=== PATIENT | female | born 1975 | race Caucasian/White ===

== ENCOUNTER 2019-09-23 18:24 | Emergency (ER) | payer OTHER, SELFPAY ==
--- NOTE | ~2019-09-23 | CT_ITS ---
EXAMINATION: CT abdomen pelvis w con INDICATION: Abdominal pain and vomiting TECHNIQUE: Computed tomographic images of the abdomen and pelvis were obtained after the administrati on of 100 cc of Omnipaque 350 intravenous contrast. The dose-length product (DLP) was 705.37 mGy-cm. Automated exposure control and iterative reconstruction technique were employed. COMPARISON: None available FINDINGS: The lung bases are clear. The heart size is normal. Bilateral breast implants are noted. Th e liver is diffusely low in attenuation when compared with the spleen, consistent with hepatic steato sis. The gallbladder is surgically absent. There is mild enlargement of the common bile duct and cent ral intrahepatic ducts which is likely due to post cholecystectomy state. The spleen, pancreas, adren al glands, and kidneys are normal. There is a 1.5 x 0.8 cm soft tissue density situated adjacent to t he spleen, gastric fundus, and left adrenal gland which matches the spleen in attenuation and likely represents a splenule. No pathologically enlarged abdominal or pelvic lymph nodes are identified. The re is no free intraperitoneal gas or evidence of bowel obstruction. IMPRESSION: 1. No CT correlate for the patient's symptoms. 2. Diffuse hepatic steatosis. Reviewed, dictated and finalized at location A.
[2019-09-23 18:26] VITALS: BP 131/88; PULSE 75; RESP 18; TEMP 36.6; O2SAT 97
[2019-09-23 18:44] LABS: Basophils Absolute Auto 0.1 K/mm3 (0.0-0.1); Basophils Percent Auto 0.8 % (0.2-1.2); Eosinophils Absolute Auto 0.1 K/mm3 (0-0.3); Eosinophils Percent Auto 1.4 % (0-4.4); Hemoglobin 14.1 g/dL (12.0-15.0); Immature Granulocyte Absolute 0.02 K/mm3 (0.00-0.031); Immature Granulocyte Percent A 0.2 % (0-0.5); Lymphocytes Absolute Auto 3.85 K/mm3 (0.9-3.2); Lymphocytes Percent Auto 41.5 % (18.3-44.2); Mean Corpuscular HGB Conc 33.6 g/dl (32-36); Mean Corpuscular Hemoglobin 31.5 pg (26-34); Monocytes Absolute Auto 0.7 K/mm3 (0.1-0.6); Monocytes Percent Auto 7.6 % (2.6-8.5); Neutrophils Absolute Auto 4.5 K/mm3 (1.3-6.7); Neutrophils Percent Auto 48.5 % (45.5-73.1); Platelet Count Result 220 k/mm3 (150-375); Red Blood Count 4.47 M/mm3 (4.2-5.4); Red Cell Distribution Width 13.9 % (11.5-14.5); White Blood Count 9.3 K/mm3 (4.5-10.0)
[2019-09-23 18:56] LABS: Alanine Aminotransferase 17 U/L (4-35); Albumin Level 4.3 g/dL (3.5-5.1); Alkaline Phosphatase 87 U/L (38-126); Anion Gap 10.6 mmol/L (7-16); Aspartate Amino Transferase 24 U/L (14-36); Bilirubin,Total 0.3 mg/dL (0.2-1.3); Blood Urea Nitrogen 12 mg/dL (7-17); Calcium 9.2 mg/dL (8.4-10.2); Carbon Dioxide 27 mmol/L (22-30); Chloride 101 mmol/L (98-107); Estimated CRCL calculation 90 ml/min; Estimated Glomerular Filt Rate > 60; Glucose 252 mg/dL (65-105); Lipase 87 U/L (23-300); Potassium 3.6 mmol/L (3.4-5.0); Sodium 135 mmol/L (137-145)
--- NOTE | 2019-09-23 18:57 | ED.ABDPAIN ---
HPI - Abdominal Pain General Chief Complaint: Abdominal Pain Stated Complaint: right flank pain Time Seen by Provider: 09/23/19 18:55 Source: patient Mode of arrival: ambulatory Limitations: no limitations History of Present Illness HPI narrative: Patient is a 44-year-old female with a history of type 1 diabetes who presents for evaluation of vomiting and abdominal pain. Patient reports a one-week history of intermittent cramping abdominal pain, located throughout her abdomen but mostly on the right side and in the right flank. No associated fever or chills. Patient had some associated diarrhea earlier in the week that has since resolved. Due to earlier congestion and cough type symptoms, her primary care physician ordered a COVID swab for her which was negative. Patient states diarrhea has mostly resolved. No severe abdominal pain. No dark or tarry stool. No sick contacts at home. Patient states blood sugar levels have been decently controlled with insulin pump. Related Data Home Medications Medication Instructions Recorded Confirmed acyclovir 200 mg PO DAILY 09/23/19 citalopram [Celexa] 20 mg PO DAILY 09/23/19 insulin regular human [Novolin R 1 sliding scale dose SUBCUT 09/23/19 Regular U-100 Insuln] USEASDIRECTD levothyroxine [Synthroid] 150 mcg PO DAILY 09/23/19 pantoprazole [Protonix] 40 mg PO QAM 09/23/19 Allergies Allergy/AdvReac Type Severity Reaction Status Date / Time Sulfa (Sulfonamide AdvReac Vomiting Verified 09/23/19 19:08 Antibiotics) Review of Systems Review of Systems: Narrative: CONSTITUTIONAL: Denies fever, chills, or sweats. EYES: Denies visual changes, redness, or discharge. ENT: Resolved rhinorrhea and congestion CARDIOVASCULAR: Denies chest pain, palpitations, or edema. RESPIRATORY: No current cough or shortness of breath GASTROINTESTINAL: Mild cramping abdominal pain, nausea, vomiting, diarrhea has improved GENITOURINARY: Denies dysuria or hematuria. SKIN: Denies rash or itching. MUSCULOSKELETAL: Reporting mild right flank pain, joint pain, or myalgia. NEUROLOGIC: Denies headache, numbness, or weakness. [facility] Past Medical History Medical History (Updated 09/23/19 @ 21:00 by Joi Olmedo MD) Type 1 diabetes Surgical History Surgical History (Updated 09/23/19 @ 19:33 by Joi Olmedo MD) H/O section H/O tubal ligation Social History Social History (Updated 09/23/19 @ 19:33 by Joi Olmedo MD) Smoking status: Never smoker Alcohol intake: never Substance use: never Living arrangements: with family Gender identity (if verbalized by the patient): Female Exam Narrative: Exam Narrative: GENERAL: Awake, alert, conversant HEAD: Normocephalic, atraumatic. EYES: PERRLA and EOMI. ENT: Nares clear, no rhinorrhea or epistaxis. Mucous membranes moist. NECK: Supple. CHEST: No respiratory distress, breathing even and non labored HEART: Regular rate, sinus rhythm ABDOMEN:Non distended, very mild right upper and right lower quadrant tenderness without guarding, no rebound, no rigidity, negative Rovsing sign EXTREMITIES: Normal range of motion. No edema. SKIN: Warm, dry, no rash. NEURO:No focal deficits. Alert and oriented x3 Course Vital Signs Vital signs: Vital Signs Temperature 36.6 C 09/23/19 18:26 Pulse Rate 75 09/23/19 18:26 Respiratory Rate 18 09/23/19 18:26 Blood Pressure 131/88 09/23/19 18:26 Pulse Oximetry 97 09/23/19 18:26 Temperature 36.6 C 09/23/19 18:26 Pulse Rate 55 L 09/23/19 20:32 Respiratory Rate 20 09/23/19 20:32 Blood Pressure 116/81 09/23/19 20:32 Pulse Oximetry 97 09/23/19 20:32 MDM - Abdominal Pain MDM Narrative Medical decision making narrative: Patient's abdomen is soft without significant pain or signs of surgical abdomen on serial exams. Patient is not in DKA. No acidosis. No anion gap. No severe electrolyte derangement. No UTI. Nothing found on CT imaging with ac
[2019-09-23] MEDS: ONDANSETRON INJ 4 MG/2 ML VIAL IV PUSH (19:40)
[2019-09-23] MEDS: SODIUM CHLORIDE 0.9% IV 1,000 ML 999 ML IV CONT (19:40)
[2019-09-23] MEDS: MORPHINE SULFATE 4 MG/ML INJ IV PUSH (19:40)
[2019-09-23 19:43] VITALS: BP 124/82; PULSE 63; RESP 20; O2SAT 97
[2019-09-23 19:45] LABS: Add Urine Microscopic? NO; Appearance Urine Clear (Clear); Bilirubin Urine Negative (Negative); Blood Urine Negative (Negative); Color Urine Yellow (Yellow); Glucose Urine UA Negative (Negative); Ketones Urine Negative (Negative); Leukocyte Esterase Ur Negative LEU/UL (Negative); Nitrate Urine Negative (Negative); Protein Urine Negative (Negative); Specific Grav Ur 1.016 (1.001-1.035); Urobilinogen Urine Negative mg/dL (<2.0)
[2019-09-23 20:32] VITALS: BP 116/81; PULSE 55; RESP 20; O2SAT 97
[2019-09-23 22:19] VITALS: BP 104/72; PULSE 70; RESP 20; O2SAT 96
== END 2019-09-23 22:21 | disposition home or self-care (01) ==
PROVIDERS: General Practice; Emergency Provider Emergency Medicine; PCP Internal Medicine Endocrinology, Diabetes & Metabolism
DX: R10.84 Generalized abdominal pain (principal); E10.9 Type 1 diabetes mellitus without complications; Z79.4 Long term (current) use of insulin; Z96.41 Presence of insulin pump (external) (internal); K76.0 Fatty (change of) liver, not elsewhere classified
CPT/HCPCS: 36415; 74177; 80053; 81003; 83690; 85025; 96361; 96374; 96375; 99284; J2270; J2405; J7030; Q9967

== ENCOUNTER 2019-09-26 11:54 | Emergency (ER) | payer OTHER, SELFPAY ==
[2019-09-26 12:04] VITALS: BP 115/73; PULSE 77; RESP 16; TEMP 36.4; O2SAT 98
--- NOTE | 2019-09-26 12:06 | ED.GENADULT ---
HPI - General Adult General Chief complaint: Headache Stated complaint: headache Time Seen by Provider: 09/26/19 12:06 Source: patient Mode of arrival: ambulatory Limitations: no limitations History of Present Illness HPI narrative: 44-year-old female patient presents to the [facility] with complaints of a headache for the past week and a half. Patient states that earlier last week she has had symptoms diarrhea, nausea and stomach discomfort. Patient states she also had a little bit of a cough at that time. Denies any fevers. Patient denies any shortness of breath or chest pain currently. Patient states she was tested for COVID last week which came back negative. Patient is type I diabetic and states her sugars have been kind of all over the place but have been staying pretty steady. Her sugar right now is 238 according to her insulin pump. Patient states she did have a sweet coffee before she came in today. Patient states she has been taking 600 mg of ibuprofen for the headache which she rates 5 out of 10. Patient states ibuprofen may take it down to about 3 or 4 out of 10. Patient states the headache typically never does go away. Patient states she has also had a little bit of neck pain here and there. 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 Related Data Home Medications Medication Instructions Recorded Confirmed citalopram [Celexa] 20 mg PO DAILY 09/23/19 09/26/19 insulin regular human [Novolin R 1 sliding scale dose SUBCUT 09/23/19 09/26/19 Regular U-100 Insuln] USEASDIRECTD levothyroxine [Synthroid] 150 mcg PO DAILY 09/23/19 09/26/19 pantoprazole [Protonix] 40 mg PO QAM 09/23/19 09/26/19 valacyclovir 500 mg DAILY 09/26/19 09/26/19 Allergies Allergy/AdvReac Type Severity Reaction Status Date / Time Sulfa (Sulfonamide AdvReac Vomiting Verified 09/26/19 11:57 Antibiotics) Review of Systems Review of Systems: Narrative: CONSTITUTIONAL: Denies fever, chills, or sweats. EYES: Denies visual changes, redness, or discharge. ENT: Denies rhinorrhea, congestion, sore throat, or otalgia. CARDIOVASCULAR: Denies chest pain, palpitations, or edema. RESPIRATORY: Denies cough or dyspnea. GASTROINTESTINAL: Denies abdominal pain, nausea, vomiting, or diarrhea. GENITOURINARY: Denies dysuria or hematuria. SKIN: Denies rash or itching. MUSCULOSKELETAL: Denies back pain, joint pain, or myalgia. Positive neck pain NEUROLOGIC: Positive headache, denies numbness, or weakness. PSYCHIATRIC: Denies anxiety or depression. [facility] Past Medical History Medical History Type 1 diabetes Surgical History Surgical History H/O section H/O tubal ligation Social History Social History Smoking status: Never smoker Alcohol intake: never Substance use: never Gender identity (if verbalized by the patient): Female Comments At the time of my signature I agree with nursing past medical history, surgical, social, and family history. There is no relevant family history pertinent to the presenting complaint. Exam Narrative: Exam Narrative: GENERAL: Well-appearing, well-nourished, and in no acute distress. HEAD: Normocephalic, atraumatic. Patient complains of headache to the occipital area of the head EYES: PERRLA and EOMI. ENT: Nares clear, no rhinorrhea or epistaxis. Mucous membranes moist. NECK: Supple, no lymphadenopathy. No surface trauma, no soft tissue or muscle tenderness or spasm noted. Trachea midline. No subq emphysema or crepitus. No chanell tenderness, step-offs or deformity to firm Palpation at posterior midline. FROM without limitation or pain, normal flexion, extension,Lateral bending, rotation, and axial load. CHEST: Clear to auscultation. No respiratory distress. HEART: Regular rate and r
--- NOTE | 2019-09-26 12:16 | ECG_ITS ---
Measurements Intervals [place] Rate: 58 P: 30 CO: 144 QRS: 44 QRSD: 84 T: 30 QT: 395 QTc: 390 Interpretive Statements SINUS BRADYCARDIA NONSPECIFIC T-WAVE ABNORMALITY- ANT/INF LEADS BORDERLINE ECG Electronically Signed On 09-26-2019 13:36:45 CDT by Shankar Carreno D.O.
== END 2019-09-26 12:34 | disposition home or self-care (01) ==
PROVIDERS: Emergency Provider Nurse Practitioner Family; PCP Internal Medicine Endocrinology, Diabetes & Metabolism
DX: G44.209 Tension-type headache, unspecified, not intractable (principal); E10.9 Type 1 diabetes mellitus without complications
CPT/HCPCS: 93005; 99213; G0463

== ENCOUNTER 2020-09-23 17:17 | Emergency (ER) | payer OTHER, SELFPAY ==
[2020-09-23 17:24] VITALS: BP 110/74; PULSE 69; RESP 17; TEMP 36.5; O2SAT 99
--- NOTE | 2020-09-23 17:32 | ED.URI ---
HPI - URI/Sore Throat General Chief Complaint: Upper Respiratory Infection Stated Complaint: Congestion Time Seen by Provider: 09/23/20 17:25 Source: patient and RN notes reviewed Mode of arrival: ambulatory Limitations: no limitations History of Present Illness HPI Narrative: 45-year-old female presents to the [facility] with C/O 10 days of nasal discharge, turned green the last couple of days. Also states she has had a cough, headache, sore throat sinus pain and pressure across the maxillary and frontal. Has tried multiple [id number] products with no relief. Denies fevers. No chest pain or abdominal pain. No shortness of breath. Patient is a diabetic Related Data Home Medications Medication Instructions Recorded Confirmed citalopram 40 mg PO DAILY 09/23/20 09/23/20 insulin aspart U-100 [Novolog 100 unit CONTINUOUS IV INFUSION 09/23/20 09/23/20 U-100 Insulin aspart] DAILY levothyroxine 150 mcg PO DAILY 09/23/20 09/23/20 pantoprazole 40 mg PO DAILY 09/23/20 09/23/20 Allergies Allergy/AdvReac Type Severity Reaction Status Date / Time Sulfa (Sulfonamide Allergy Hives Verified 09/23/20 17:33 Antibiotics) Review of Systems Review of Systems: All systems reviewed & are unremarkable except as noted in HPI and below Constitutional: Constitutional: Reports no additional constitutional complaints, Denies chills and Denies fever(s) Eyes: Eyes: Reports no additional eye complaints and Denies change in vision ENT: Reports as per HPI, Reports nasal congestion and Reports sore throat Cardiovascular: Cardiovascular: Reports no additional cardiovascular complaints and Denies chest pain Respiratory: Respiratory: Reports as per HPI, Denies chest congestion, Reports cough, Denies dyspnea and Denies wheezing Gastrointestinal: Gastrointestinal: Reports no additional gastrointestinal complaints, Denies abdominal pain, Denies nausea and Denies vomiting Musculoskeletal: Musculoskeletal: Reports no additional musculoskeletal complaints Integumentary/Breasts: Skin/Breast: Reports system reviewed and no additional complaints, except as docu Neurologic: Reports as per HPI and Reports headache(s) Psychiatric: Psychiatric: Reports no additional psychiatric complaints Allergic/Immunologic: Allergic/Immunologic: Reports no additional allergic/immunologic complaints, Denies lip swelling, Denies throat swelling and Denies tongue swelling PMFSH Past Medical History Medical History (Updated 09/26/20 @ 11:53 by Vicky Mason) Type 1 diabetes Surgical History Surgical History H/O section H/O tubal ligation Social History Social History Smoking status: Never smoker Alcohol intake: never Substance use: never Gender identity (if verbalized by the patient): Female Comments At the time of my signature, I reviewed and agree with the nursing past medical, surgical, social, and family history. There is no relevant family history pertinent to the patient complaint. Exam Const: General: healthy appearing, no acute distress and alert Nutritional Appearance: well nourished Orientation/consciousness: patient oriented x3 Limitations: no limitations HENMT: Head: normal to inspection Ears: hearing grossly normal bilaterally, external ears normal, EAC's normal and TM abnormal bulging bilateral and wth effusion serous bilateral General nose exam: Normal external nose present, Abnormal mucous membranes and turbinates present boggy and erythematous and Nasal discharge present bloody and mucoid Face and sinus: normal facial exam Mouth: Yes Normal oral and palatal mucosa present, Yes lip normal and Yes tongue normal Throat: posterior oropharynx normal, tonsils normal and uvula midline Eyes: Conjunctivae: conjunctivae normal Pupils: Equal, round and reactive pupils present Neck: Neck: normal visual inspect
== END 2020-09-23 17:41 | disposition home or self-care (01) ==
PROVIDERS: Emergency Provider Nurse Practitioner
DX: J01.40 Acute pansinusitis, unspecified (principal); E10.9 Type 1 diabetes mellitus without complications
CPT/HCPCS: 99213; G0463

== ENCOUNTER 2020-12-11 20:38 | Observation (INO) | payer OTHER, SELFPAY ==
[2020-12-11] VITALS (7 sets, daily range): BP systolic 100–137; BP diastolic 69–83; PULSE 68–87; RESP 12–16; TEMP 36.3; O2SAT 97–99
[2020-12-11 20:53] LABS: Glucose Point of Care > 500 mg/dl (65-105)
[2020-12-11 21:06] LABS: Basophils Absolute Auto 0.1 K/mm3 (0.0-0.1); Basophils Percent Auto 0.8 % (0.2-1.2); Eosinophils Absolute Auto 0.1 K/mm3 (0-0.3); Eosinophils Percent Auto 0.7 % (0-4.4); Hematocrit 36.4 % (37.0-47.0); Hemoglobin 12.2 g/dL (12.0-15.0); Immature Granulocyte Absolute 0.02 K/mm3 (0.00-0.031); Immature Granulocyte Percent A 0.2 % (0-0.5); Lymphocytes Absolute Auto 2.33 K/mm3 (0.9-3.2); Lymphocytes Percent Auto 26.3 % (18.3-44.2); Mean Corpuscular HGB Conc 33.5 g/dl (32-36); Mean Corpuscular Hemoglobin 31.7 pg (26-34); Mean Corpuscular Volume 94.5 fl (80-100); Monocytes Absolute Auto 0.9 K/mm3 (0.1-0.6); Monocytes Percent Auto 9.9 % (2.6-8.5); Neutrophils Absolute Auto 5.5 K/mm3 (1.3-6.7); Neutrophils Percent Auto 62.1 % (45.5-73.1); Platelet Count Result 193 k/mm3 (150-375); Red Blood Count 3.85 M/mm3 (4.2-5.4); Red Cell Distribution Width 13.7 % (11.5-14.5); White Blood Count 8.9 K/mm3 (4.5-10.0)
[2020-12-11 21:21] LABS: Beta-Hydroxybutyrate/Acetoacetate 2.84 mmol/L (0.02-0.27)
[2020-12-11 21:23] LABS: Alanine Aminotransferase 18 U/L (4-35); Albumin Level 4.6 g/dL (3.5-5.1); Alkaline Phosphatase 92 U/L (38-126); Anion Gap 14 mmol/L (8-16); Aspartate Amino Transferase 25 U/L (14-36); Bilirubin,Total 0.8 mg/dL (0.2-1.3); Blood Urea Nitrogen 23 mg/dL (7-17); Calcium 9.4 mg/dL (8.4-10.2); Carbon Dioxide 21 mmol/L (22-30); Chloride 93 mmol/L (98-107); Estimated CRCL calculation 77 ml/min; Estimated Glomerular Filt Rate > 60; Magnesium 1.8 mg/dL (1.6-2.3); Phosphorus 3.6 mg/dL (2.5-4.5); Potassium 4.5 mmol/L (3.4-5.0); Sodium 128 mmol/L (137-145)
[2020-12-11 21:30] LABS: Glucose 741 mg/dL (65-110)
[2020-12-11 21:33] LABS: Add Urine Microscopic? YES; Appearance Urine Clear (Clear); Bilirubin Urine Negative (Negative); Blood Urine Negative (Negative); Color Urine Colorless (Yellow); Glucose Urine UA 3+ mg/dL (Negative); Ketones Urine 1+ mg/dL (Negative); Leukocyte Esterase Ur Negative LEU/UL (Negative); Nitrate Urine Negative (Negative); Protein Urine Negative (Negative); RBC Urine 0-2 /hpf (0-2); Squamous Epithelial Cell Urine Rare /hpf (Few); Urobilinogen Urine Negative mg/dL (<2.0); WBC Urine 0-3 /hpf
--- NOTE | 2020-12-11 21:57 | ED.GENADULT ---
HPI - General Adult General Chief complaint: Recheck/Abnormal Lab/Rx Stated complaint: Hyperglycemia/ Type I DM Time Seen by Provider: 12/11/20 21:28 History of Present Illness HPI narrative: Patient is a 45-year-old female that presents to emergency department with chief complaint of hyperglycemia. Patient reports that she has history of type 1 diabetes and uses an insulin pump. The patient reports there was a pot luck today at work and reports that she may not have dosed herself correctly with her insulin. Patient states throughout the day she noticed her blood sugars been running higher and her meter has been reading over 500. Patient states that she feels nauseated reports she also has a little bit of a headache denies any fever chills denies diarrhea denies actually vomiting. Related Data Home Medications Medication Instructions Recorded Confirmed citalopram 40 mg PO DAILY 09/23/20 09/23/20 insulin aspart U-100 [Novolog 100 unit CONTINUOUS IV INFUSION 09/23/20 09/23/20 U-100 Insulin aspart] DAILY levothyroxine 150 mcg PO DAILY 09/23/20 09/23/20 pantoprazole 40 mg PO DAILY 09/23/20 09/23/20 Allergies Allergy/AdvReac Type Severity Reaction Status Date / Time Sulfa (Sulfonamide Allergy Hives Verified 09/23/20 17:33 Antibiotics) Review of Systems Review of Systems: A 10 system review of systems was completed on the patient and is negative except for what is stated in the HPI. Nursing and ancillary documentation was reviewed. [facility] Past Medical History Medical History (Updated 12/11/20 @ 21:59 by Marcello Otto MD) Type 1 diabetes Surgical History Surgical History H/O section H/O tubal ligation Social History Social History Smoking status: Never smoker Alcohol intake: never Substance use: never Gender identity (if verbalized by the patient): Female Exam Narrative: GENERAL: Well-appearing, well-nourished, and in no acute distress. HEAD: Normocephalic, atraumatic. EYES: PERRLA and EOMI. ENT: Nares clear, no rhinorrhea or epistaxis. Mucous membranes moist. NECK: Supple. CHEST: Clear to auscultation. No respiratory distress. HEART: Regular rate and rhythm. No murmur heard. Normal peripheral pulses. ABDOMEN: Soft, nontender, nondistended, normal active bowel sounds. EXTREMITIES: Normal range of motion. No edema. SKIN: Warm, dry, no rash. NEURO: No focal deficits. Alert and oriented x3. PSYCH: Normal mood and affect. Course Vital Signs Vital signs: Vital Signs Temperature 36.3 C L 12/11/20 20:48 Pulse Rate 87 12/11/20 20:48 Respiratory Rate 16 12/11/20 20:48 Blood Pressure 137/83 12/11/20 20:48 Pulse Oximetry 98 12/11/20 20:48 Temperature 36.3 C L 12/11/20 20:48 Pulse Rate 87 12/11/20 20:48 Respiratory Rate 16 12/11/20 20:48 Blood Pressure 137/83 12/11/20 20:48 Pulse Oximetry 98 12/11/20 20:48 Medical Decision Making Vital Signs Vital Signs: Vital Signs Temperature 36.3 C L 12/11/20 20:48 Pulse Rate 87 12/11/20 20:48 Respiratory Rate 16 12/11/20 20:48 Blood Pressure 137/83 12/11/20 20:48 Pulse Oximetry 98 12/11/20 20:48 Temperature 36.3 C L 12/11/20 20:48 Pulse Rate 87 12/11/20 20:48 Respiratory Rate 16 12/11/20 20:48 Blood Pressure 137/83 12/11/20 20:48 Pulse Oximetry 98 12/11/20 20:48 Lab Data Result diagrams: 12/11/20 20:55 12/11/20 20:55 Labs: Lab Results 12/11/20 12/11/20 12/11/20 Range/Units 20:50 20:55 20:55 WBC 8.9 (4.5-10.0) K/mm3 RBC 3.85 L (4.2-5.4) M/mm3 Hgb 12.2 (12.0-15.0) g/dL Hct 36.4 L (37.0-47.0) % MCV 94.5 (80-100) fl MCH 31.7 (26-34) pg MCHC 33.5 (32-36) g/dl RDW 13.7 (11.5-14.5) % Plt Count 193 (150-375) k/mm3 MPV 12.0 H (7.4-10.4) fl [facility]
--- NOTE | 2020-12-11 22:05 | PM.IMHP ---
H&P: HPI History of Present Illness Date/Time: 12/11/20 22:05 Chief Complaint: Uncontrolled sugars Narrative: This is a 45-year-old female with past medical history significant for type 2 diabetes mellitus insulin dependent patient has a any insulin pump implanted in her abdomen. Patient presented to the emergency room due to uncontrolled blood sugar her glucometer was reading high she was also feeling no said having polyuria and polydipsia feeling very thirsty patient participated in a potluck at work, her last hemoglobin A1c was 7.5% and her checkup appointment is coming up in January states that her sugars fasting glucose is usually 100 and after meals 200. Patient has been her usual state of health no fevers no rigors, no chills, no cough, no sputum production, no pain or burning with urination, no abdominal pain, no vision changes. Preliminary workup was significant for a blood glucose of 700. Review of Systems Review of Systems: Thirst, high sugar, polyuria. Constitutional: Constitutional: Denies chills, Denies fatigue, Denies fever(s), Denies lethargy, Denies malaise, Denies night sweats and Denies weakness Eyes: Eyes: Denies change in vision ENT: Denies dysphagia, Denies nasal congestion, Denies nasal discharge, Denies nasal obstruction and Denies odynophagia Cardiovascular: Cardiovascular: Denies lightheadedness, Denies radiating jaw, neck or arm pain, Denies palpitations, Denies dyspnea on exertion and Denies orthopnea Respiratory: Respiratory: Denies cough Gastrointestinal: Gastrointestinal: Denies abdominal pain, Denies dyspepsia, Denies heartburn, Denies diarrhea, Reports nausea and Denies vomiting Genitourinary: Genitourinary: Reports no additional female genitourinary complaints Musculoskeletal: Musculoskeletal: Reports no additional musculoskeletal complaints Integumentary/Breasts: Skin/Breast: Reports system reviewed and no additional complaints, except as docu Neurologic: Reports system reviewed and no additional complaints, except as documented Psychiatric: Psychiatric: Reports no additional psychiatric complaints Endocrine: Endocrine: Reports polydipsia and Reports polyuria Hematologic/Lymphatic: Hematologic/Lymphatic: Reports no additional hematologic/lymphatic complaints Allergic/Immunologic: Allergic/Immunologic: Reports no additional allergic/immunologic complaints [facility] Past Medical History Medical History (Updated 12/11/20 @ 21:59 by Marcello Otto MD) Type 1 diabetes Surgical History Surgical History H/O section H/O tubal ligation Social History Social History Smoking packs per day: 1 Smoking cigarettes per day: 20.0 Years smoked: 30 Smoking pack-years: 30.00 Smoking status: Current every day smoker Tobacco type: cigarettes Second hand tobacco smoke exposure: Yes Alcohol intake: current Drinks per week: 0 Substance use: current Substance use type: marijuana Last use: 12-08-20 Gender identity (if verbalized by the patient): Female Spiritual care concerns: No Meds Home Medications and Allergies Home Medications Medication Instructions Recorded Confirmed Type citalopram 40 mg PO DAILY 09/23/20 09/23/20 History fluticasone propionate [Flonase 2 spray INTRANASAL DAILY #16 g 09/23/20 Rx Allergy Relief] insulin aspart U-100 [Novolog 100 unit CONTINUOUS IV INFUSION 09/23/20 09/23/20 History U-100 Insulin aspart] DAILY levothyroxine 150 mcg PO DAILY 09/23/20 09/23/20 History pantoprazole 40 mg PO DAILY 09/23/20 09/23/20 History Allergies Allergy/AdvReac Type Severity Reaction Status Date / Time Sulfa (Sulfonamide Allergy Hives Verified 12/11/20 22:03 Antibiotics) Vital Signs Vital Signs - 24 hr 12/11/20 20:48 Temperature 97.4 F L Pulse Rate 87 Respiratory Rate 16 Blood Pressure 137/8
[2020-12-11 22:25] LABS: Glucose Point of Care > 500 mg/dl (65-105)
[2020-12-11] MEDS: INSULIN HUMAN REGULAR (*BKC) 100 UNITS in SODIUM CHLORIDE 0.9% IV 99 ML 13 UNITS IV CONT (22:37)
[2020-12-11] MEDS: SODIUM CHLORIDE 0.9% IV 1,000 ML 999 ML IV CONT ×2 (22:38→23:34)
[2020-12-11 23:30] LABS: Glucose Point of Care 486 mg/dl (65-105)
--- NOTE | 2020-12-11 23:37 | PC.NURSE ---
rn double check charge nurse sara fajardo
[2020-12-12] VITALS (11 sets, daily range): BP systolic 96–128; BP diastolic 55–74; PULSE 60–87; RESP 12–19; TEMP 36.1–37; O2SAT 95–100; BMI 31.3
[2020-12-12 00:28] LABS: Glucose Point of Care 366 mg/dl (65-105)
--- NOTE | 2020-12-12 00:28 | PC.NURSE ---
0020 Report received from YUNIOR Montague.
--- NOTE | 2020-12-12 00:30 | PC.NURSE ---
Insulin titration verified by Krista MOJICA.
[2020-12-12] MEDS: INSULIN HUMAN REGULAR (*BKC) 100 UNITS in SODIUM CHLORIDE 0.9% IV 99 ML 12.2 UNITS IV CONT (00:50)
[2020-12-12] MEDS: SODIUM CHLORIDE 0.9% IV 1,000 ML 150 ML IV CONT (01:04)
--- NOTE | 2020-12-12 01:28 | ADMGEN ---
This patient, Giovanna Mena, was admitted to Intensive Care Unit-3 on 12/12/20 at 0050. Patient/family oriented to hospital policies and general routines including ID bracelet, bed and alarms, visiting hours, pain management, procedures, bathroom and other care routines, personal items, smoking policy, room service/diet, and visiting hours. Information on how to activate the Rapid Response Team has been discussed. Patient/Family are encouraged to report perceived risks to care and to ask questions if they do not understand what they are told or what they should do.
[2020-12-12 01:41] LABS: Glucose Point of Care 220 mg/dl (65-105)
[2020-12-12 01:46] LABS: Anion Gap 8 mmol/L (8-16); Blood Urea Nitrogen 18 mg/dL (7-17); Calcium 8.7 mg/dL (8.4-10.2); Carbon Dioxide 26 mmol/L (22-30); Chloride 103 mmol/L (98-107); Estimated CRCL calculation 88 ml/min; Estimated Glomerular Filt Rate > 60; Glucose 261 mg/dL (65-110); Potassium 3.3 mmol/L (3.4-5.0); Sodium 137 mmol/L (137-145)
[2020-12-12] MEDS: KCL 20 MEQ/D5/0.45% SOD CHL 1,000 ML 150 ML IV CONT (02:46)
[2020-12-12 02:51] LABS: Glucose Point of Care 124 mg/dl (65-105)
[2020-12-12 03:07] LABS: Hemoglobin A1C 9.5 % (<5.7)
--- NOTE | 2020-12-12 03:37 | PC.NURSE ---
request apple juice vs glucose gel for blood glucose of 69.
[2020-12-12 03:58] LABS: Glucose Point of Care 94 mg/dl (65-105)
[2020-12-12 03:58] LABS: Glucose Point of Care 69 mg/dl (65-105)
[2020-12-12 05:22] LABS: Anion Gap 3 mmol/L (8-16); Blood Urea Nitrogen 16 mg/dL (7-17); Calcium 8.5 mg/dL (8.4-10.2); Carbon Dioxide 31 mmol/L (22-30); Chloride 106 mmol/L (98-107); Estimated CRCL calculation 99 ml/min; Estimated Glomerular Filt Rate > 60; Glucose 108 mg/dL (65-110); Potassium 3.9 mmol/L (3.4-5.0); Sodium 140 mmol/L (137-145)
[2020-12-12 08:25] LABS: Glucose Point of Care 233 mg/dl (65-105)
[2020-12-12] MEDS: INSULIN GLARGINE (*BKC) 100 UNITS/ML 15 UNITS SUB-Q (09:56)
[2020-12-12 10:14] LABS: Anion Gap 7 mmol/L (8-16); Blood Urea Nitrogen 12 mg/dL (7-17); Calcium 8.3 mg/dL (8.4-10.2); Carbon Dioxide 24 mmol/L (22-30); Chloride 105 mmol/L (98-107); Estimated CRCL calculation 99 ml/min; Estimated Glomerular Filt Rate > 60; Glucose 314 mg/dL (65-110); Potassium 4.4 mmol/L (3.4-5.0); Sodium 136 mmol/L (137-145)
--- NOTE | 2020-12-12 11:09 | WPDCNINT ---
Assessment and Plan Assessment and plan (1) Diabetic ketoacidosis: Code(s): E11.10 - Type 2 diabetes mellitus with ketoacidosis without coma Status: Acute Assessment and Plan: Patient presented with severe hyperglycemia, anion gap metabolic acidosis, elevated beta hydroxybutyrate, patient was diagnosed with diabetic ketoacidosis. Given IV fluids and started on insulin infusion. -into infusion was turned off overnight, -started patient on Lantus and sliding scale insulin along with diabetic diet -will also connect her insulin pump -will have museum educator and infrastructure software engineer evaluate the patient (2) Type 1 diabetes: Code(s): E10.9 - Type 1 diabetes mellitus without complications Status: Acute Assessment and Plan: Patient history of type 1 diabetes, -hemoglobin A1c this admission is 9.5 -patient has an insulin pump which has been working fine according to her Additional Plan Discussed with patient updated with her condition and plan of care Code status: Full code Critical care time spent: 42 minutes This dictation may have been done utilizing a voice recognition system. Attempts have been made to correct errors. However, there may be uncorrected grammatical, spelling, and recognition errors present. Due to a high probability of clinically significant, life threatening deterioration, the patient required my highest level of preparedness to intervene emergently and I personally spent this critical care time directly and personally managing the patient. This critical care time included obtaining a history; examining the patient; pulse oximetry; ordering and review of studies; arranging urgent treatment with development of a management plan; evaluation of patient's response to treatment; frequent reassessment; and discussions with other providers. It was exclusive of separately billable procedures and treating other patients and teaching time. Please see Assessment and Plan section and the rest of the note for further information on patient assessment and treatment [employer] Officer Consult Note Consult date: 12/12/20 Time Seen: 06:48 Reason for consult: DKA, hyperglycemia HPI: Giovanna Mena is a 45 year old female with past medical history of diabetes type 1 presented to the ED with hyperglycemia. According the records patient states that she had a pot luck at her work and may have not dosed herself correctly with her insulin. Throughout the day she noticed that her blood sugars were running significantly higher than usual. She also did complained of nausea and headache. Denies any vomiting or abdominal pain. Patient was found to be in DKA, was given IV fluids and started on insulin infusion and transferred to the ICU for further management. 12/12/2020:Pt seen and examined. Denies any N/V, abdomen pain, chest pain or SOB. Insulin infusion was turned off but was not started on any long-acting sliding scale insulin. Blood sugars this morning were in the 230s, patient was started on Lantus and added sliding scale insulin along with diabetic diet. Urine output been adequate, a stable and afebrile Review of Systems Review of Systems: All systems reviewed & are unremarkable except as noted in HPI and below PMFSH Past Medical History Medical History (Updated 12/12/20 @ 11:47 by Sara Mireles MD) Type 1 diabetes Surgical History Surgical History H/O section H/O tubal ligation Family History Family History (Updated 12/12/20 @ 09:04 by Apurva Mckeon RN) Mother Diabetes mellitus Social History Social History Smoking packs per day: 1 Smoking cigarettes per day: 20.0 Years smoked: 30 Smoking pack-years: 30.00 Smoking status: Current every day smoker Tobacco type: cigarettes Second hand tobacco smoke exposure: Yes Alcohol intake: current Aparna
[2020-12-12 12:14] LABS: Glucose Point of Care 345 mg/dl (65-105)
[2020-12-12] MEDS: INSULIN ASPART (*BKC) 100 UNITS/ML SUB-Q ×2 (13:08→17:12)
[2020-12-12 14:18] LABS: Anion Gap 10 mmol/L (8-16); Blood Urea Nitrogen 13 mg/dL (7-17); Calcium 8.6 mg/dL (8.4-10.2); Carbon Dioxide 22 mmol/L (22-30); Chloride 104 mmol/L (98-107); Estimated CRCL calculation 78 ml/min; Estimated Glomerular Filt Rate > 60; Glucose 368 mg/dL (65-110); Potassium 4.3 mmol/L (3.4-5.0); Sodium 136 mmol/L (137-145)
[2020-12-12] MEDS: ACETAMINOPHEN 325 MG TABLET 650 MG PO (15:02)
--- NOTE | 2020-12-12 16:18 | PC.NURSE ---
This patient, Giovanna Mena, was transferred to [[id number] ] on 12/12/20 at 1618. Personal belongings sent with patient. Report given to [Hallie MOJICA ]. Appropriate documentation sent with patient.
[2020-12-12 16:51] LABS: Glucose Point of Care 223 mg/dl (65-105)
--- NOTE | 2020-12-12 18:09 | PM.IMPN ---
Progress Note: A&P Assessment and Plan (1) Diabetic ketoacidosis: Qualifiers: Diabetes mellitus type: type 1 Diabetes mellitus complication detail: without coma Qualified Code(s): E10.10 - Type 1 diabetes mellitus with ketoacidosis without coma Code(s): E11.10 - Type 2 diabetes mellitus with ketoacidosis without coma Status: Acute Assessment and Plan: Acidosis has resolved. The patient has been transferred to the medical floor. It sounds as if the patient's glucoses have been uncontrolled for at least the last several months. She admits to not is quite careful management of her diabetes. I had a long discussion with patient regarding the importance of diabetes control. The patient did report that she care cell several boluses of insulin without improvement in her sugars yesterday. Portion of her symptoms could have been due to malfunction of her infusion catheter. Patient does not have her supplies here to place her insulin pump back on. Subsequently she has been started on Lantus and high-dose sliding scale insulin. She is still moderately hyperglycemic. Will monitor closely and continue Accu-Cheks with sliding scale insulin and hypoglycemia protocol (2) Type 1 diabetes: Qualifiers: Diabetes mellitus complication status: with hyperglycemia Qualified Code(s): E10.65 - Type 1 diabetes mellitus with hyperglycemia Code(s): E10.9 - Type 1 diabetes mellitus without complications Status: Acute Time Spent With Patient Time with patient: 25 - 35 minutes Subjective Date/time seen: 12/12/20 18:09 Interval history: Patient came into the ER feeling off and having high readings on her glucometer. She reports her last hemoglobin A1c approximately 5 months ago was 7.6. Her A1c this admission was 9.5. She admits she has not been checking her sugars as often as she should. She last had changed her infusion site on the evening of the . She does reports several months of increased blurred vision from baseline. She still has a sore throat currently in her throat feels dry. Review of Systems Review of Systems: All systems reviewed & are unremarkable except as noted in HPI and below (HPI) Exam Narrative: PHYSICAL EXAM: WEIGHT 90.7 kg BMI 31.3 General: No acute distress, overweight HEENT: Mucous membranes are moist, mild posterior oral pharyngeal erythema, posterior oral pharynx somewhat crowded, pupils are equal and react Respiratory: Clear to auscultation bilaterally, no increased work of breathing Cardiovascular: Regular rate, regular rhythm, no murmurs Gastrointestinal: Soft, nontender, nondistended Skin: No significant pallor, non jaundice Musculoskeletal: No clubbing, cyanosis or edema Neurological: Alert and oriented, speech is clear, no gross motor deficits noted on limited exam Psychiatric: Appropriate mood and affect, pleasant and cooperative : Deferred Hematologic/lymphatic: No anterior cervical or submandibular lymphadenopathy Objective Data Vital Signs Vital Signs: Vital Signs - 24 hr 12/11/20 20:48 12/11/20 21:30 12/11/20 22:30 Temperature 97.4 F L Pulse Rate 87 80 81 Respiratory Rate 16 12 16 Blood Pressure 137/83 112/80 127/78 Pulse Oximetry 98 97 98 12/11/20 22:45 12/11/20 23:20 12/11/20 23:30 Temperature Pulse Rate 81 68 70 Respiratory Rate 16 12 15 Blood Pressure 100/69 112/73 108/70 Pulse Oximetry 97 98 98 12/11/20 23:31 12/12/20 01:06 12/12/20 02:00 Temperature 97.8 F Pulse Rate 77 67 69 Respiratory Rate 15 16 17 Blood Pressure 102/74 Pulse Oximetry 99 98 12/12/20 02:29 12/12/20 04:00 12/12/20 06:00 Temperature Pulse Rate 67 76 Respiratory Rate 12 18 Blood Pressure 100/55 L Pulse Oximetry 98 97 100 12/12/20 08:00 12/12/20 10:00 12/12/20 12:00 Temperature 98.4 F 98.6 F Pulse Rate 72 87 73 Respiratory Rate 12 18 15 Blood Pressure 96/62 L 106/74 111/69 Pulse Oximetry 98 97 95 12/12/20 16:0
[2020-12-12 19:03] LABS: Anion Gap 7 mmol/L (8-16); Blood Urea Nitrogen 15 mg/dL (7-17); Calcium 8.4 mg/dL (8.4-10.2); Carbon Dioxide 24 mmol/L (22-30); Chloride 103 mmol/L (98-107); Estimated CRCL calculation 71 ml/min; Estimated Glomerular Filt Rate 59; Glucose 358 mg/dL (65-110); Potassium 4.2 mmol/L (3.4-5.0); Sodium 134 mmol/L (137-145)
[2020-12-12] MEDS: INSULIN ASPART (*BKC) 100 UNITS/ML 8 UNITS SUB-Q (20:51)
[2020-12-12 21:47] LABS: Glucose Point of Care 368 mg/dl (65-105)
[2020-12-13] VITALS: BP 128/73; PULSE 60; RESP 18; TEMP 36.1; O2SAT 98
[2020-12-13 05:27] LABS: Glucose Point of Care 219 mg/dl (65-105)
[2020-12-13 07:41] LABS: Hematocrit 36.1 % (37.0-47.0); Hemoglobin 11.7 g/dL (12.0-15.0); Mean Corpuscular HGB Conc 32.4 g/dl (32-36); Mean Corpuscular Volume 95.8 fl (80-100); Platelet Count Result 181 k/mm3 (150-375); Red Blood Count 3.77 M/mm3 (4.2-5.4); Red Cell Distribution Width 13.5 % (11.5-14.5); White Blood Count 6.3 K/mm3 (4.5-10.0)
[2020-12-13 08:01] LABS: Anion Gap 6 mmol/L (8-16); Blood Urea Nitrogen 13 mg/dL (7-17); Calcium 8.3 mg/dL (8.4-10.2); Carbon Dioxide 28 mmol/L (22-30); Chloride 101 mmol/L (98-107); Estimated CRCL calculation 98 ml/min; Estimated Glomerular Filt Rate > 60; Glucose 274 mg/dL (65-110); Potassium 4.1 mmol/L (3.4-5.0); Sodium 135 mmol/L (137-145)
[2020-12-13 08:06] LABS: Glucose Point of Care 281 mg/dl (65-105)
[2020-12-13] MEDS: INSULIN ASPART (*BKC) 100 UNITS/ML SUB-Q ×2 (08:20→12:53)
[2020-12-13] MEDS: INSULIN GLARGINE (*BKC) 100 UNITS/ML 15 UNITS SUB-Q (08:21)
[2020-12-13] MEDS: ACETAMINOPHEN 325 MG TABLET 650 MG PO (08:24)
--- NOTE | 2020-12-13 11:26 | PM.DS ---
DS: Admitting Diagnosis Discharge Date 12/13/2020 Admitting Diagnosis Hyperglycemia DS: Discharge Diagnosis Discharge Diagnosis (1) Diabetic ketoacidosis: Qualifiers: Diabetes mellitus complication detail: without coma Diabetes mellitus type: type 1 Qualified Code(s): E10.10 - Type 1 diabetes mellitus with ketoacidosis without coma Code(s): E11.10 - Type 2 diabetes mellitus with ketoacidosis without coma Status: Acute Assessment and Plan: Acidosis has resolved. The patient has been transferred to the medical floor. It sounds as if the patient's glucoses have been uncontrolled for at least the last several months. She admits to not is quite careful management of her diabetes. I had a long discussion with patient regarding the importance of diabetes control. The patient did report that she care cell several boluses of insulin without improvement in her sugars yesterday. Portion of her symptoms could have been due to malfunction of her infusion catheter. Patient does not have her supplies here to place her insulin pump back on. Subsequently she has been started on Lantus and high-dose sliding scale insulin. She is still moderately hyperglycemic. Will monitor closely and continue Accu-Cheks with sliding scale insulin and hypoglycemia protocol (2) Type 1 diabetes: Qualifiers: Diabetes mellitus complication status: with hyperglycemia Qualified Code(s): E10.65 - Type 1 diabetes mellitus with hyperglycemia Code(s): E10.9 - Type 1 diabetes mellitus without complications Status: Acute DS: Summary Hospital Course Hospital Course: This is a 45-year-old lady with a past medical history significant for type 2 diabetes mellitus insulin dependent patient has a any insulin pump implanted in her abdomen. Patient presented to the emergency room due to uncontrolled blood sugar her glucometer was reading high she was also feeling no said having polyuria and polydipsia feeling very thirsty patient participated in a potPOWk at work, her last hemoglobin A1c was 7.5% and her checkup appointment is coming up in January states that her sugars fasting glucose is usually 100 and after meals 200. Patient has been her usual state of health no fevers no rigors, no chills, no cough, no sputum production, no pain or burning with urination, no abdominal pain, no vision changes. Preliminary workup was significant for a blood glucose of 700. She was admitted to ICU. She was started on strict NPO, insulin drip while her electrolytes were monitored and replace as needed Her insulin pump was stopped and restarted when off of insulin drip and patient is started on a diet. With the above management, acidosis has resolved. The patient has been transferred to the medical floor. Patient has experienced elevated blood glucoses. I had a long discussion with patient regarding the importance of diabetes control. She is still moderately hyperglycemic. Fasting blood glucose 274. Accu-checks in the 222-281 range. Patient is discharged home on her insulin pump to follow up with an home housekeeper and a concrete products machine operator. Status at Discharge Functional status at discharge: independent ambulation Time Spent with Patient Time attestation: Total time spent providing and/or coordinating discharge services: 30 min Time spent: Less than 30 minutes Exam Narrative: PHYSICAL EXAM: WEIGHT 90.7 kg BMI 31.3 General: No acute distress, overweight HEENT: Mucous membranes are moist, mild posterior oral pharyngeal erythema, posterior oral pharynx somewhat crowded, pupils are equal and react Respiratory: Clear to auscultation bilaterally, no increased work of breathing Cardiovascular: Regular rate, regular rhythm, no murmurs Gastrointestinal: Soft, nontender, nondistended Skin: No significant pallor, non jaundice Musculoskeletal: No clubbing, cyanosis or edema Neurological: Alert and oriented, speech is clear, no gross motor deficits not
[2020-12-13 12:14] LABS: Glucose Point of Care 222 mg/dl (65-105)
[2020-12-13 15:12] VITALS: BP 113/78; PULSE 63; RESP 12; TEMP 36.7; O2SAT 98
== END 2020-12-13 14:40 | disposition home or self-care (01) ==
LOC: ANHED 22:21 → ANHICU 12-12 02:27 → ANH3MEDSUR 12-13 11:26 → ANHICU 12-16 13:49
PROVIDERS: Emergency Medicine; Internal Medicine; Admitting Provider Internal Medicine; Emergency Provider Emergency Medicine; Visit Provider Internal Medicine
DX: E10.65 Type 1 diabetes mellitus with hyperglycemia (principal); F17.210 Nicotine dependence, cigarettes, uncomplicated; Z96.41 Presence of insulin pump (external) (internal)
CPT/HCPCS: 36415; 80048; 80053; 81001; 82010; 82948; 83036; 83735; 84100; 85025; 85027; 87081; 87880; 96365; 96366; 96368; 99285; A9270; G0378; J1815; J3480; J7030

== ENCOUNTER 2021-06-19 10:19 | Emergency (ER) | payer OTHER, SELFPAY ==
[2021-06-19 10:25] VITALS: BP 131/82; PULSE 74; RESP 18; TEMP 36.1; O2SAT 100
--- NOTE | 2021-06-19 10:55 | ED.BACK ---
HPI - Back Pain/Injury General Chief Complaint: Back Pain/Injury Stated Complaint: lower back pain Time Seen by Provider: 06/19/21 10:35 Source: patient Mode of arrival: ambulatory Limitations: no limitations History of Present Illness HPI Narrative: 46 y/o female presents to the ER today for complaints of low back pain. She says that it started on Wednesday but is worse today. She is getting some pain radiation to down her right leg. She has a patch of numbness to right thigh. She denies any history of lumbar surgery. She has history of low back pain but is generally mild and intermittent. She denies any perianal numbness or incontinence. She has increased pain with position changes. She feels better once she is up and walking. She was seen a couple of days ago at urgent care. She was given tramadol and muscle relaxer but has not helped. Related Data Home Medications Medication Instructions Recorded Confirmed citalopram 40 mg PO DAILY 09/23/20 12/12/20 insulin aspart U-100 [Novolog 100 unit CONTINUOUS IV INFUSION 09/23/20 12/12/20 U-100 Insulin aspart] DAILY levothyroxine 150 mcg PO DAILY 09/23/20 12/12/20 pantoprazole 40 mg PO DAILY 09/23/20 12/12/20 Allergies Allergy/AdvReac Type Severity Reaction Status Date / Time Sulfa (Sulfonamide Allergy Hives Verified 06/19/21 10:28 Antibiotics) Review of Systems Constitutional: Constitutional: Denies chills, Denies fever(s) and Denies weakness Eyes: Eyes: Reports no additional eye complaints ENT: Denies vertigo and Denies dizziness Cardiovascular: Cardiovascular: Denies chest pain Respiratory: Respiratory: Denies cough, Denies dyspnea and Denies wheezing Gastrointestinal: Gastrointestinal: Denies diarrhea, Denies nausea and Denies vomiting Genitourinary: Genitourinary: Denies nocturia, Denies dysuria and Denies flank pain Musculoskeletal: Musculoskeletal: Reports back pain and Denies myalgias Neurologic: Reports as per HPI and Denies focal weakness Psychiatric: Psychiatric: Denies anxiety and Denies depression Endocrine: Endocrine: Denies fatigue Hematologic/Lymphatic: Hematologic/Lymphatic: Reports no additional hematologic/lymphatic complaints Allergic/Immunologic: Allergic/Immunologic: Reports no additional allergic/immunologic complaints [facility] Past Medical History Medical History (Updated 06/19/21 @ 11:39 by Elba Harrison APRN) Type 1 diabetes Surgical History Surgical History H/O section H/O tubal ligation Family History Family History Mother Diabetes mellitus Social History Social History Smoking packs per day: 1 Smoking cigarettes per day: 20.0 Years smoked: 30 Smoking pack-years: 30.00 Smoking status: Current every day smoker Tobacco type: cigarettes Second hand tobacco smoke exposure: Yes Alcohol intake: current Drinks per week: 0 Substance use: current Substance use type: marijuana Last use: 12-08-20 Gender identity (if verbalized by the patient): Female Spiritual care concerns: No Exam Const: General: healthy appearing and no acute distress Orientation/consciousness: patient oriented x3 HENMT: Head: normal to inspection Eyes: Conjunctivae: conjunctivae normal Chest: Chest palpation & inspection: normal inspection of the chest Resp: Effort & Inspection: normal respiratory effort Auscultation: clear to auscultation bilaterally Cardio: Rate: regular rate Rhythm: regular rhythm GI: Auscultation: normal bowel sounds : General: Yes no CVA tenderness Back/Spine/Pelvis: Back: no CVA tenderness Other: no focal tenderness with palpation over the lower lumbar spine, increased lumbar pain with any movement. Skin: General skin exam: normal color Rashes: no rashes Neuro: General: patient oriented x
[2021-06-19] MEDS: TRIAMCINOLONE ACET INJ 40 MG/ML VIAL IM (11:17)
[2021-06-19 11:57] VITALS: BP 142/86; PULSE 84; RESP 16; O2SAT 98
== END 2021-06-19 12:00 | disposition home or self-care (01) ==
PROVIDERS: Emergency Provider Nurse Practitioner Family
DX: M54.50 Low back pain, unspecified (principal); M79.604 Pain in right leg; E10.9 Type 1 diabetes mellitus without complications; Z79.4 Long term (current) use of insulin; F17.210 Nicotine dependence, cigarettes, uncomplicated
CPT/HCPCS: 96372; 99283; J3301

== ENCOUNTER 2023-03-09 09:53 | Emergency (ER) | payer OTHER, SELFPAY ==
[2023-03-09 09:58] VITALS: BP 101/72; PULSE 72; RESP 20; TEMP 37.1; O2SAT 98
--- NOTE | 2023-03-09 10:12 | ED.URI ---
HPI - URI/Sore Throat General Chief Complaint: Upper Respiratory Infection Stated Complaint: cough/ears/head congestion Time Seen by Provider: 03/09/23 10:12 Source: patient, RN notes reviewed and old records reviewed Mode of arrival: ambulatory Limitations: no limitations History of Present Illness HPI Narrative: 47-year-old female who presents to [facility] with complaints of 7-10 days history of cough, head congestion,ears feel full with pressure,sinus pain and pressure, chest burning.. Patient reports that she received a Z-pack on February 14 for URI with no help. Patient reports that she did have low grade fever of 100.5F last night. Patient reports that she has been taking Tylenol and Sinex medications for her symptoms without resolution. Patient reports that has been ill also with similar symptoms. MD elicited complaint: cough, rhinorrhea, nasal congestion, sinus pain and other (ear pressure pain) Onset (ago): day(s) (7-10 days increased symptoms) Consistency: constant Pain scale (0-10): 6 Able to tolerate fluids by mouth: Yes Treatments prior to arrival: acetaminophen and other (sinex medication) Related Data Home Medications Medication Instructions Recorded Confirmed levothyroxine 150 mcg tablet 150 mcg PO DAILY 09/23/20 03/09/23 blood-glucose transmitter (Dexcom 03/09/23 03/09/23 G6 Transmitter device) insulin lispro 100 unit/mL See Rx Instructions .Route .COMPLEX 03/09/23 03/09/23 subcutaneous solution (Humalog U-100 Insulin) insulin pump cart,automated,BT 03/09/23 03/09/23 (Omnipod 5 G6 Pods (Gen 5) subcutaneous cartridge) valacyclovir 500 mg tablet 500 mg PO BID 03/09/23 03/09/23 Allergies Allergy/AdvReac Type Severity Reaction Status Date / Time Sulfa (Sulfonamide Allergy Hives Verified 03/09/23 10:02 Antibiotics) Review of Systems Review of Systems: CONSTITUTIONAL: Reports malaise, chills, sweats, or fever. EYES: Denies visual changes, redness, or discharge. ENT: Reports rhinorrhea, congestion, sinus pain, otalgia and no sore throat. CARDIOVASCULAR: Denies chest pain, palpitations, or edema. RESPIRATORY: Reports cough.? Denies dyspnea. GASTROINTESTINAL: Denies abdominal pain, nausea, vomiting, diarrhea SKIN: Denies rash or itching. MUSCULOSKELETAL: Denies myalgia. NEUROLOGIC: Reports headache. All systems reviewed & are unremarkable except as noted in HPI and below PMFSH Past Medical History Medical History (Updated 03/10/23 @ 09:58 by Joi Rodrigez NP) GERD (gastroesophageal reflux disease) Hypothyroid Type 1 diabetes Surgical History Surgical History H/O cervical spine surgery cervical fusions X2 H/O section H/O tubal ligation History of cholecystectomy History of tonsillectomy Family History Family History Mother Diabetes mellitus Social History Social History (Updated 03/09/23 @ 10:19 by Joi Rodrigez NP) Smoking packs per day: 1 Smoking cigarettes per day: 20.0 Years smoked: 30 Smoking pack-years: 30.00 Smoking status: Former smoker Tobacco type: cigarettes Second hand tobacco smoke exposure: Yes Additional smoking assessment comments: quit 1.5 years ago Alcohol intake: current Drinks per week: 0 Substance use: current Substance use type: marijuana Last use: 12-08-20 Living arrangements: with family Gender identity (if verbalized by the patient): Female Spiritual care concerns: No Comments At time of signature, agree with nursing past medical, surgical, social and family history. There is no relevant family history pertinent to the presenting complaint Exam Narrative: GENERAL: Well-appearing, well-nourished, and in no acute distress. HEAD: Normocephalic EYES: PERRLA, conjunctivae clear ENT: Nares clear, turbinates edematous and erythematous, clear
[2023-03-09 10:18] VITALS: BP 101/72; PULSE 72; RESP 20; TEMP 37.1; O2SAT 98
== END 2023-03-09 10:35 | disposition home or self-care (01) ==
PROVIDERS: Emergency Provider Registered Nurse; PCP Internal Medicine Endocrinology, Diabetes & Metabolism
DX: J32.9 Chronic sinusitis, unspecified (principal); E03.9 Hypothyroidism, unspecified; E10.9 Type 1 diabetes mellitus without complications; Z79.4 Long term (current) use of insulin; Z79.899 Other long term (current) drug therapy; Z87.891 Personal history of nicotine dependence
CPT/HCPCS: 87426; 87804; 99213; G0463